=== PATIENT | male | born 1995 | race Caucasian/White ===

== ENCOUNTER → 2021-10-28 | Emergency (ER) | payer OTHER ==
[~2021-10-28] VITALS: Ht 172.7 cm; Wt 136.1 kg
== END | disposition home or self-care (01) ==
LOC: ER 13:21
DX: J00 Acute nasopharyngitis [common cold] (principal); Z20.822 Contact with and (suspected) exposure to COVID-19

== ENCOUNTER 2021-11-19 10:27 | Emergency (ER) | payer OTHER ==
[~2021-11-19] VITALS: Ht 172.7 cm; Wt 136.1 kg
== END 2021-11-19 14:59 | disposition home or self-care (01) ==
LOC: ER 10:27
DX: U07.1 COVID-19 (principal); B34.9 Viral infection, unspecified